=== PATIENT | female | born 1955 | race African-American/Black ===

== ENCOUNTER 2020-07-06 14:01 | Emergency (ER) | payer MEDICARE, MEDICAID, SELFPAY ==
[2020-07-06 14:08] VITALS: BP 173/102; PULSE 61; RESP 16; TEMP 35.9; O2SAT 100
[2020-07-06 14:15] VITALS: BP 163/88; PULSE 60; RESP 18; TEMP 37.2; O2SAT 99
[2020-07-06 14:24] LABS: Glucose Point of Care 436 (65-105)
[2020-07-06 14:53] LABS: Add Urine Microscopic? YES; Appearance Urine Clear (Clear); Bilirubin Urine Negative (Negative); Blood Urine Negative (Negative); Color Urine Yellow (Yellow); Glucose Urine UA 3+ mg/dL (Negative); Ketones Urine Negative (Negative); Leukocyte Esterase Ur Negative LEU/UL (Negative); Mucus Urine Rare /lpf; Nitrate Urine Negative (Negative); Protein Urine 2+ mg/dL (Negative); Squamous Epithelial Cell Urine Few /hpf (Few); Urobilinogen Urine Negative mg/dL (<2.0); WBC Urine 0-3 /hpf
[2020-07-06 14:54] LABS: Basophils Absolute Auto 0.1 K/mm3 (0.0-0.1); Basophils Percent Auto 0.8 % (0.2-1.2); Eosinophils Absolute Auto 0.3 K/mm3 (0-0.3); Eosinophils Percent Auto 5.2 % (0-4.4); Hematocrit 37.4 % (37.0-47.0); Hemoglobin 11.7 g/dL (12.0-15.0); Immature Granulocyte Absolute 0.05 K/mm3 (0.00-0.031); Immature Granulocyte Percent A 0.8 % (0-0.5); Lymphocytes Absolute Auto 2.13 K/mm3 (0.9-3.2); Lymphocytes Percent Auto 33.8 % (18.3-44.2); Mean Corpuscular HGB Conc 31.3 g/dl (32-36); Mean Corpuscular Hemoglobin 27.7 pg (26-34); Mean Corpuscular Volume 88.6 fl (80-100); Mean Platelet Volume 11.3 fl (7.4-10.4); Monocytes Absolute Auto 0.4 K/mm3 (0.1-0.6); Monocytes Percent Auto 5.7 % (2.6-8.5); Neutrophils Absolute Auto 3.4 K/mm3 (1.3-6.7); Neutrophils Percent Auto 53.7 % (45.5-73.1); Platelet Count Result 244 k/mm3 (150-375); Red Blood Count 4.22 M/mm3 (4.2-5.4); Red Cell Distribution Width 12.6 % (11.5-14.5); White Blood Count 6.3 K/mm3 (4.5-10.0)
[2020-07-06] MEDS: SODIUM CHLORIDE 0.9% IV 1,000 ML 999 ML IV CONT (15:03)
[2020-07-06 15:10] LABS: Albumin Level 3.7 g/dL (3.5-5.1); Alkaline Phosphatase 103 U/L (38-126); Anion Gap 9 mmol/L (8-16); Aspartate Amino Transferase 24 U/L (14-36); Beta-Hydroxybutyrate/Acetoacetate 0.09 mmol/L (0.02-0.27); Bilirubin,Total 0.6 mg/dL (0.2-1.3); Blood Urea Nitrogen 4 mg/dL (7-17); Calcium 8.5 mg/dL (8.4-10.2); Carbon Dioxide 25 mmol/L (22-30); Chloride 99 mmol/L (98-107); Estimated CRCL calculation 115 ml/min; Estimated Glomerular Filt Rate > 60; Glucose 414 mg/dL (65-105); Magnesium 1.4 mg/dL (1.6-2.3); Phosphorus 2.8 mg/dL (2.5-4.5); Potassium 3.4 mmol/L (3.4-5.0); Sodium 133 mmol/L (137-145)
[2020-07-06 15:10] LABS: Specific Grav Ur 1.031 (1.001-1.035)
[2020-07-06 15:18] LABS: Alanine Aminotransferase 15 U/L (4-35)
[2020-07-06 15:34] VITALS: BP 171/86; PULSE 60; RESP 16; O2SAT 99
[2020-07-06 15:36] LABS: Glucose Point of Care 339 (65-105)
--- NOTE | 2020-07-06 15:39 | ED.GENADULT ---
HPI - General Adult General Chief complaint: Recheck/Abnormal Lab/Rx Stated complaint: high blood sugar Time Seen by Provider: 07/06/20 14:16 History of Present Illness HPI narrative: Patient is a 65-year-old female who presents to the ER with elevated blood sugars. Referred here by her doctor who will soon be her PCP. She reports her hemoglobin A1c was around 12 and her blood sugar was found to be in the 400s. She is having no polydipsia or polyuria. No fevers or chills or sweats. Denies nausea/vomiting. Reports no previous history of being diabetic. Related Data Home Medications Medication Instructions Recorded Confirmed amlodipine 5 mg PO DAILY 07/06/20 carvedilol 25 mg PO BID 07/06/20 clonidine HCl 0.2 mg PO BID 07/06/20 losartan 100 mg PO DAILY 07/06/20 Allergies Allergy/AdvReac Type Severity Reaction Status Date / Time No Known Allergies Allergy Verified 07/06/20 14:33 Review of Systems Review of Systems: All systems reviewed & are unremarkable except as noted in HPI and below Constitutional: Constitutional: Denies chills, Denies fever(s) and Denies weakness Eyes: Eyes: Denies change in vision ENT: Denies nasal congestion and Denies sore throat Gastrointestinal: Gastrointestinal: Denies abdominal pain, Denies diarrhea, Denies nausea and Denies vomiting Genitourinary: Genitourinary: Denies nocturia and Denies dysuria Endocrine: Endocrine: Denies excessive sweating, Denies fatigue, Denies polydipsia and Denies polyuria PMFSH Past Medical History Medical History (Updated 07/06/20 @ 17:22 by Marvel Armstrong MD) Hypertension Surgical History Surgical History (Updated 07/06/20 @ 15:44 by Marvel Armstrong MD) No pertinent past surgical history Social History Social History (Updated 07/06/20 @ 15:44 by Marvel Armstrong MD) Smoking status: Never smoker Gender identity (if verbalized by the patient): Female Exam Narrative: Exam Narrative: GENERAL: Well-appearing, well-nourished, and in no acute distress. HEAD: Normocephalic, atraumatic. CHEST: Clear to auscultation. No respiratory distress. HEART: Regular rate and rhythm. Normal peripheral pulses. ABDOMEN: Soft, nontender, nondistended. EXTREMITIES: Normal range of motion. No edema. SKIN: Warm, dry, no rash. NEURO: Alert and oriented x3. PSYCH: Normal mood and affect. Course Course Emergency Course: Patient informed of results. Discussed case with her primary care physician Dr. Nuñez. Recommend starting Metformin 500 mg twice daily. Vital Signs Vital signs: Vital Signs Temperature 96.7 F L 07/06/20 14:08 Pulse Rate 61 07/06/20 14:08 Respiratory Rate 16 07/06/20 14:08 Blood Pressure 173/102 H 07/06/20 14:08 Pulse Oximetry 100 07/06/20 14:08 Temperature 99.0 F 07/06/20 14:15 Pulse Rate 59 L 07/06/20 16:26 Respiratory Rate 18 07/06/20 16:26 Blood Pressure 160/83 H 07/06/20 16:26 Pulse Oximetry 100 07/06/20 16:26 Medical Decision Making Vital Signs Vital Signs: Vital Signs Temperature 96.7 F L 07/06/20 14:08 Pulse Rate 61 07/06/20 14:08 Respiratory Rate 16 07/06/20 14:08 Blood Pressure 173/102 H 07/06/20 14:08 Pulse Oximetry 100 07/06/20 14:08 Temperature 99.0 F 07/06/20 14:15 Pulse Rate 59 L 07/06/20 16:26 Respiratory Rate 18 07/06/20 16:26 Blood Pressure 160/83 H 07/06/20 16:26 Pulse Oximetry 100 07/06/20 16:26 Lab Data Result diagrams: 07/06/20 14:36 07/06/20 14:36 Labs: Lab Results 07/06/20 07/06/20 07/06/20 Range/Units 14:20 14:36 14:36 WBC 6.3 (4.5-10.0) K/mm3 RBC 4.22 (4.2-5.4) M/mm3 Hgb 11.7 L (12.0-15.0) g/dL Hct 37.4 (37.0-47.0) % MCV 88.6 (80-100) fl MCH 27.7 (26-34) pg MCHC 31.3 L (32-36) g/dl RDW 12.6 (11.5-14.5) % Plt Count 244 (150-375) k/mm3 MPV 11.3 H (7.4-10.4) fl Immature Gran % (Auto) 0.8 H (0-0.5) % Neut % (Auto) 53.7
[2020-07-06 15:56] VITALS: BP 163/84; PULSE 59; RESP 16; O2SAT 99
[2020-07-06 16:26] VITALS: BP 160/83; PULSE 59; RESP 18; O2SAT 100
== END 2020-07-06 17:40 | disposition home or self-care (01) ==
PROVIDERS: Emergency Provider Emergency Medicine
DX: R73.9 Hyperglycemia, unspecified (principal); I10 Essential (primary) hypertension
CPT/HCPCS: 36415; 80053; 81001; 82010; 82948; 83735; 84100; 85025; 96360; 99283; J7030